=== PATIENT | female | born 1980 | race Caucasian/White ===

== ENCOUNTER 2018-01-19 10:13 | Emergency (ER) | payer SELFPAY ==
[~2018-01-19] VITALS: Ht 170.2 cm; Wt 77.0 kg
[~2018-01-19 10:13] MED LIST: DICL75TA PO
[2018-01-19 10:17] VITALS: BP 121/73; PULSE 96; RESP 15; TEMP 98.9; O2SAT 98
[2018-01-19] MEDS ORDERED: ELVI1TAB3 PO (10:48)
[2018-01-19] MEDS ORDERED: TRAZ50TA12 PO (10:48)
[2018-01-19] MEDS ORDERED: BUSP10TA PO (10:48)
[2018-01-19] MEDS ORDERED: SODIUM CHLOR 0.9% 1000 ML INJ 1,000 ML IV SCH (10:52)
[2018-01-19] MEDS ORDERED: KETOROLAC TROMETHAMINE 30 MG/ML (IVP) VIAL IVP ONE (11:00)
[2018-01-19] MEDS ORDERED: ONDANSETRON HCL 4 MG/2 ML VIAL IVP ONE (11:00)
[2018-01-19] MEDS ORDERED: SODIUM CHLORIDE 0.9% FLUSH 10 ML FLUSH IV FLUSH PRN (11:00)
--- NOTE | 2018-01-19 11:34 | PD ---
HPI Chief Complaint: Flank/Kidney Pain Time Seen by Provider: 10:47 Travel History International Travel<30 days: No Contact w/Intl Traveler<30days: No Traveled to known affect area: No History of Present Illness HPI Patient is a 37 year old female who comes in complaining of bilateral flank pain for 4 days. She says she had some pain with urination when it first started. She describes it as "peeing shards of glass." She says she had a temperature of 100 degrees yesterday, but nothing today. She took Ibuprofen, which relieved her fever, but not her pain. She denies nausea or vomiting. Severity is mild to moderate. PFSH Past Medical History Asthma: Yes Immune Disorder: Yes (HIV +) Psychiatric: Yes Seizures: Yes (HEAD TRAUMA) Tetanus Vaccination: > 5 Years ?: Not LMP: 11/2017 Social History Alcohol Use: Yes Tobacco Use: Yes (1 PPD) Substance Use: Yes (CRACK, METH, WEED) Allergies-Medications (Allergen,Severity, Reaction): Coded Allergies: aspirin (Unverified Allergy, Mild, SEIZURES, 01/19/18) Reported Meds & Prescriptions Reported Meds & Active Scripts Active Reported Buspirone (Buspirone HCl) 10 Mg Tab 10 Mg PO TID Trazodone (Trazodone HCl) 50 Mg Tab 50 Mg PO HS Genvoya (Tepkucrjemrx-Ebmrmdvziq-Mxqptuqfqtev-Tenofvir) [id number] Mg Tab 1 Tab PO DAILY Review of Systems Except as stated in HPI: all other systems reviewed are Neg General / Constitutional: Positive: Fever, No: Chills HENT: No: Headaches, Lightheadedness Cardiovascular: No: Chest Pain or Discomfort Gastrointestinal: Positive: Abdominal Pain, No: Nausea, Vomiting Genitourinary: Positive: Flank Pain Musculoskeletal: No: Myalgias Skin: No Rash, No Change in Pigmentation Neurologic: No: Weakness, Dizziness Physical Exam Narrative GENERAL: Awake and alert, in no acute distress. SKIN: Focused skin assessment warm/dry. No wounds or signs of infection. HEAD: Atraumatic. Normocephalic. EYES: Pupils equal and round. No scleral icterus. ENT: Mucous membranes pink and moist. NECK: Trachea midline. No JVD. CARDIOVASCULAR: Regular rate and rhythm. No murmur appreciated. RESPIRATORY: No accessory muscle use. Clear to auscultation. Breath sounds equal bilaterally. GASTROINTESTINAL: Abdomen soft, nondistended. Tender to palpation of the suprapubic area. No rebound or guarding. No CVA tenderness. MUSCULOSKELETAL: No obvious deformities. No clubbing. No cyanosis. No edema. No spinal tenderness. Tender to palpation of the bilateral sacroiliac areas. NEUROLOGICAL: Awake and alert. No obvious cranial nerve deficits. Motor grossly within normal limits. Normal speech. PSYCHIATRIC: Appropriate mood and affect; insight and judgment normal. Data Data Last Documented VS Vital Signs Date Time Temp Pulse Resp B/P (MAP) Pulse Ox O2 Delivery O2 Flow Rate FiO2 01/19/18 11:57 99 01/19/18 10:17 98.9 96 15 121/73 (89) Orders Orders Complete Blood Count With Diff (01/19/18 10:52) Comprehensive Metabolic Panel (01/19/18 10:52) Urinalysis - C+S If Indicated (01/19/18 10:52) Ct Abd/Pel W/O Iv Contrast (01/19/18 10:52) Iv Access Insert/Monitor (01/19/18 10:52) Ecg Monitoring (01/19/18 10:52) Oximetry (01/19/18 10:52) Ondansetron Inj (Zofran Inj) (01/19/18 11:00) Sodium Chlor 0.9% 1000 Ml Inj (Ns 1000 M (01/19/18 10:52) Sodium Chloride 0.9% Flush (Ns Flush) (01/19/18 11:00) Ketorolac Inj (Toradol Inj) (01/19/18 11:00) Ed Urine Pregnancytest Poc (01/19/18 10:52) Urine Culture (01/19/18 11:25) Labs Laboratory Tests Test 01/19/18 11:25 White Blood Count 7.2 TH/MM3 Red Blood Count 4.22 MIL/MM3 Hemoglobin 14.0 GM/DL Hematocrit 39.1 % Mean Corpuscular Volume 92.7 FL Mean Corpuscular Hemoglobin 33.1 PG Mean Corpuscular Hemoglobin Concent 35.7 % Red Cell Distribution Width 12.3 % Platelet Count 160 TH/MM3 Mean Platelet Volume 7.8 FL Neutrophils (%) (Auto) 72.3 % Lymphocytes (%) (Auto) 15.5 % Monocytes (%) (Auto) 11.3 % Eosinophils (%) (Auto) 0.8 % Basophils (%) (Auto) 0.1 % Neutrophils # (Auto) 5.2 TH/MM3 Lymphocytes # (Auto) 1.1 TH/MM3 Monocytes # (Auto) 0.8 TH/MM3 Eosinophils # (Auto) 0.1 TH/MM3 Basophils # (Auto) 0.0 TH/MM3 CBC Comment DIFF FINAL Differential Comment Urine Color YELLOW Urine Turbidity CLOUDY Urine pH 5.5 Urine Specific [place] 1.015 Urine Protein 30 mg/dL Urine Glucose (UA) NEG mg/dL Urine Ketones NEG mg/dL Urine Occult Blood LARGE Urine Nitrite NEG Urine Bilirubin NEG Urine Urobilinogen LESS THAN 2.0 MG/DL Urine Leukocyte Esterase LARGE Urine RBC 16 /hpf Urine WBC /hpf Urine WBC Clumps FEW Urine Squamous Epithelial Cells 14 /hpf Urine Renal Epithelial Cells 1 /hpf Urine Amorphous Sediment RARE Urine Bacteria MOD /hpf Urine Mucus FEW /lpf Microscopic Urinalysis Comment CULTURE INDICATED Blood Urea Nitrogen 10 MG/DL Creatinine 0.73 MG/DL Random Glucose 97 MG/DL Total Protein 7.9 GM/DL Albumin 3.3 GM/DL Calcium Level 8.4 MG/DL Alkaline Phosphatase 61 U/L Aspartate Amino Transf (AST/SGOT) 9 U/L Alanine Aminotransferase (ALT/SGPT) 15 U/L Total Bilirubin 0.7 MG/DL Sodium Level 138 MEQ/L Potassium Level 3.5 MEQ/L Chloride Level 106 MEQ/L Carbon Dioxide Level 24.0 MEQ/L Anion Gap 8 MEQ/L Estimat Glomerular Filtration Rate 89 ML/MIN [facility] Medical Decision Making Medical Screen Exam Complete: Yes Emergency Medical Condition: Yes Medical Record Reviewed: Yes Differential Diagnosis UTI vs pyelonephritis vs renal stone Narrative Course Patient is a 37-year-old female who comes in complaining of bilateral flank pain. Exam shows some suprapubic tenderness. IV established, labs sent. Labs show no acute abnormalities. Urinalysis is positive for UTI. CT abdomen pelvis performed shows no evidence of renal stone. There is evidence of ovarian cysts. CT concerning for a large cyst in the left ovary, but could be bowel. Patient offered ultrasound, however she does not wish to stay at this time. She says she will follow-up with her absorption plant operator helper. Last 24 hours Impressions Abdomen/Pelvis CT 01/19/18 1052 Signed Impressions: Service Date/Time: Friday, January 19, 2018 13:22 - CONCLUSION: 1. Possible large, 7 cm right adnexal cyst. Difficult to distinguish from regional bowel without oral contrast. Ultrasound of the pelvis could be performed for further evaluation. There appears to be a small, 1.6 cm cyst in the left adnexal region. 2. Probable isolated gallstone in the gallbladder lumen. 3. Appendix is radiographic normal. No renal or ureteral calculi. Chapo Galdamez MD Given IV fluids and Toradol and she is feeling better. She will be discharged with prescriptions for Cipro and naproxen. Advised follow-up with her absorption plant operator helper. Advised to return to the ED as needed for any worsening symptoms. Diagnosis Primary Impression: UTI (urinary tract infection) Qualified Codes: N30.00 - Acute cystitis without hematuria Additional Impression: Ovarian cyst Qualified Codes: N83.201 - Unspecified ovarian cyst, right side; N83.202 - Unspecified ovarian cyst, left side Patient Instructions: General Instructions, Ovarian Cyst (ED), Urinary Tract Infection in Women (ED) Additional Instructions: Take all of your antibiotic. Follow up with gynecology regarding the ovarian cysts. Return any time for any worsening symptoms. Scripts Naproxen (Naproxen) 500 Mg Tab 500 MG PO BID for 14 Days, #28 TAB 0 Refills Prov: Shila Camarillo MD 01/19/18 Ciprofloxacin (Cipro) 500 Mg Tab 500 MG PO BID for Infection for 10 Days, #20 TAB 0 Refills Prov: Shila Camarillo MD 01/19/18 Disposition: 01 DISCHARGE HOME Condition: Stable Shila Camarillo MD Jan 19, 2018 11:34
[2018-01-19 11:47] LABS: AUTOMATED NEUTROPHIL # 5.2 TH/MM3 (1.8-7.7); BASOPHIL % 0.1 % (0.0-2.0); EOSINOPHIL # 0.1 TH/MM3 (0-0.4); EOSINOPHIL % 0.8 % (0.0-4.0); HEMATOCRIT 39.1 % (35.0-46.0); LYMPH % 15.5 % (9.0-44.0); LYMPHOCYTE # 1.1 TH/MM3 (1.0-4.8); MEAN CELL VOLUME 92.7 FL (80.0-100.0); MEAN CORPUSCULAR HEMOGLOBIN 33.1 PG (27.0-34.0); MEAN CORPUSCULAR HGB CONC 35.7 % (32.0-36.0); MEAN PLATELET VOLUME 7.8 FL (7.0-11.0); MONO % 11.3 % (0.0-8.0); MONOCYTE # 0.8 TH/MM3 (0-0.9); NEUT % 72.3 % (16.0-70.0); PLATELET COUNT 160 TH/MM3 (150-450); RED BLOOD COUNT 4.22 MIL/MM3 (4.00-5.30); RED CELL DISTRIBUTION WIDTH 12.3 % (11.6-17.2); WHITE BLOOD COUNT 7.2 TH/MM3 (4.0-11.0)
[2018-01-19 11:57] VITALS: O2SAT 99
[2018-01-19 11:58] LABS: AMORPHOUS SEDIMENT, URINE RARE; BACTERIA, URINE MOD /hpf; BILIRUBIN, URINE NEG (NEG); BLOOD, URINE LARGE (NEG); GLUCOSE,URINE NEG (NEG); KETONE, URINE NEG (NEG); MUCUS URINE FEW /lpf (OCC); NITRITE,URINE NEG (NEG); PH, URINE 5.5 (5.0-8.5); RENAL EPITHELIAL CELLS 1 /hpf; SQUAMOUS EPITHELIAL CELL URINE 14 /hpf (0-5); URINE COLOR YELLOW (YELLW/STRAW); URINE LEUKOCYTE ESTERASE LARGE (NEG); WHITE BLOOD CELL CLUMPS FEW
[2018-01-19 12:02] LABS: ALBUMIN 3.3 GM/DL (3.4-5.0); ALT (GPT) 15 U/L (10-53); AST (GOT) 9 U/L (15-37); BLOOD UREA NITROGEN 10 MG/DL (7-18); CALCIUM 8.4 MG/DL (8.5-10.1); CHLORIDE 106 MEQ/L (98-107); CREATININE 0.73 MG/DL (0.50-1.00); GLOMERULAR FILTRATION RATE 89 ML/MIN (>89); GLUCOSE,RANDOM 97 MG/DL (74-106); SODIUM (NA) 138 MEQ/L (136-145)
[2018-01-19 12:04] LABS: ALKALINE PHOSPHATASE 61 U/L (45-117); TOTAL BILIRUBIN ADULT 0.7 MG/DL (0.2-1.0); TOTAL PROTEIN 7.9 GM/DL (6.4-8.2)
--- NOTE | 2018-01-19 14:04 | RADRPT ---
EXAM DATE/TIME: 01/19/2018 13:22 [place] COMPARISON: No previous studies available for comparison. INDICATIONS : Right flank pain for three days. ORAL CONTRAST: No oral contrast ingested. RADIATION DOSE: 7.41 CTDIvol (mGy) MEDICAL HISTORY : HIV. SURGICAL HISTORY : None. ENCOUNTER: Initial ACUITY: 3 days PAIN SCALE: 7/10 LOCATION: Right flank TECHNIQUE: Volumetric scanning of the abdomen and pelvis was performed. Using automated exposure control and ad justment of the mA and/or kV according to patient size, radiation dose was kept as low as reasonably achievable to obtain optimal diagnostic quality images. DICOM format image data is available electro nically for review and comparison. FINDINGS: LOWER LUNGS: The visualized lower lungs are clear. LIVER: Homogeneous density without lesion. There is no dilation of the biliary tree. There appears to be a tiny stone in the dependent portion of the gallbladder lumen. SPLEEN: Normal size without lesion. PANCREAS: Within normal limits. KIDNEYS: Normal in size and shape. There is no mass, stone, or hydronephrosis. ADRENAL GLANDS: Within normal limits. VASCULAR: There is no aortic aneurysm. BOWEL/MESENTERY: The stomach, small bowel, and colon demonstrate no acute abnormality. There is no free intraperitone al air or fluid. Appendix is identified and is radiographically normal. ABDOMINAL WALL: Within normal limits. RETROPERITONEUM: There is no lymphadenopathy. BLADDER: No wall thickening or mass. REPRODUCTIVE: Small, 1.6 cm cyst in the left adnexal region. I believe that there is a elongated, 7.0 x 4.5 x 4.3 c m possible cyst in the right adnexal region. This is difficult to distinguish from the regional bowel without contrast, however. INGUINAL: There is no lymphadenopathy or hernia. MUSCULOSKELETAL: Within normal limits for patient age. CONCLUSION: 1. Possible large, 7 cm right adnexal cyst. Difficult to distinguish from regional bowel without oral contrast. Ultrasound of the pelvis could be performed for further evaluation. There appears to be a small, 1.6 cm cyst in the left adnexal region. 2. Probable isolated gallstone in the gallbladder lumen. 3. Appendix is radiographic normal. No renal or ureteral calculi. Chapo Galdamez MD on January 19, 2018 at 13:57 Board Certified Radiologist. This report was verified electronically.
[2018-01-19] MEDS ORDERED: NAPR500T2 PO (14:25)
[2018-01-19] MEDS ORDERED: CIPR-9 PO (14:25)
== END 2018-01-19 14:32 | disposition home or self-care (01) ==
LOC: NEPD 10:13
DX: N30.00 Acute cystitis without hematuria (principal); B96.20 Unspecified Escherichia coli [E. coli] as the cause of diseases classified elsewhere; N83.202 Unspecified ovarian cyst, left side; N83.201 Unspecified ovarian cyst, right side; J45.909 Unspecified asthma, uncomplicated; F17.210 Nicotine dependence, cigarettes, uncomplicated; Z21 Asymptomatic human immunodeficiency virus [HIV] infection status; Z79.899 Other long term (current) drug therapy
CPT/HCPCS: 74176; 80053; 81001; 84703; 85025; 87077; 87086; 87186; 96374; 96375; 99284; J1885; J2405; J7030